=== PATIENT | female | born 1970 | race Caucasian/White ===

== ENCOUNTER 2016-11-04 04:56 | Emergency (ER) | payer OTHER ==
[2006-06-20 18:44] VITALS: BP 116/61
[~2016-11-04] VITALS: Ht 172.7 cm; Wt 82.7 kg
[~2016-11-04 04:56] MED LIST: ATIVAN 0.50.5 MG/TAB PO; CELEXA 20MG20 MG/TAB PO; CEPHALEXIN500 M1 PO; MULTAQ400 MG PO; NO HOME MEDICATIONS; NORCO 325 MG-51 TAB PO; ULTRAM 50MG TAB50 MG PO
[2016-11-04] MEDS ORDERED: TAMBOCOR 1100 MG/TAB PO (05:03)
[2016-11-04] MEDS ORDERED: ATIVAN 0.50.5 MG/TAB PO (05:04)
[2016-11-04 05:55] LABS: BASO # 0.1 (0.0-0.2); EOS # 0.2 (0.0-0.7); EOS % 3.8 % (0-4.0); GRAN # 3.7 (1.4-6.5); GRAN % 63.3 % (42.2-75.2); HEMATOCRIT 41.9 % (37.0-47.0); HEMOGLOBIN 13.2 g/dl (12.5-16.0); LYMPH # 1.5 (1.2-3.4); LYMPH % 25.6 % (20.0-51.0); MEAN CELL VOLUME 84 fl (80.0-100.0); MEAN CORPUSCULAR HEMOGLOBIN 27 pg (27.0-31.0); MEAN CORPUSCULAR HGB CONC 32 g/dl (33.0-37.0); MONO # 0.4 (0.1-0.6); PLATELET COUNT 236 K/mm3 (130-400); RED BLOOD COUNT 4.97 M/mm3 (4.10-5.30); REDCELL DISTRIBUTION WIDTH-CV 13.8 % (11.5-14.5); WHITE BLOOD COUNT 5.8 K/mm3 (4.8-10.8)
[2016-11-04 06:05] LABS: ADJUSTED CALCIUM 10.1 mg/dL (8.4-10.2); ALANINE AMINOTRANSFERASE 31 U/L (9-52); ALBUMIN 4.1 gm/dL (3.5-5.0); ALKALINE PHOSPHATASE 96 U/L (50-136); ANION GAP 10 mmol/L (7-16); BILIRUBIN,TOTAL 0.6 mg/dL (0.0-1.0); BLOOD UREA NITROGEN 12 mg/dL (7-17); CALCIUM 10.2 mg/dL (8.4-10.2); CARBON DIOXIDE 29 mmol/L (22-30); CHLORIDE 101 mmol/L (98-107); CREATININE, serum 0.78 mg/dL (0.52-1.25); GLUCOSE 101 mg/dL (74-106); LIPASE 103 U/L (23-300); POTASSIUM 4.2 mmol/L (3.4-5.0); SODIUM 140 mmol/L (137-145); TOTAL PROTEIN 7.6 gm/dL (6.4-8.2)
[2016-11-04 06:09] LABS: PROTHROMBIN TIME 10.8 SECONDS (9.7-12.8)
[2016-11-04 06:11] LABS: PARTIAL THROMBOPLASTIN TIME 32.2 SECONDS (26.0-37.0)
[2016-11-04 06:21] LABS: TROPONIN-I < 0.012 ng/mL (0.000-0.034)
[2016-11-04 09:07] VITALS: BP 125/77; PULSE 62; TEMP 97.8
== END 2016-11-04 09:07 | disposition home or self-care (01) ==
LOC: COL.ER 04:56
PROVIDERS: Emergency Medicine
DX: R10.13 Epigastric pain (principal); K21.9 Gastro-esophageal reflux disease without esophagitis; Z95.0 Presence of cardiac pacemaker; I49.5 Sick sinus syndrome
CPT/HCPCS: J7040; Q9967

== ENCOUNTER → 2017-04-23 | Outpatient (CLI) | payer OTHER ==
[~2017-04-23] MED LIST changes: +TAMBOCOR 1100 MG/TAB PO
== END ==
LOC: MC.RAD 10:38
DX: Z12.31 Encounter for screening mammogram for malignant neoplasm of breast (principal)

== ENCOUNTER 2018-07-23 23:53 | Emergency (ER) | payer BC ==
[2006-06-20 18:44] VITALS: BP 116/61
[~2018-07-23] VITALS: Ht 172.7 cm; Wt 81.8 kg
[2018-07-23 23:55] VITALS: BP 124/80; TEMP 97.3
[2018-07-24 00:30] LABS: COLLECTION METHOD CLEAN CATCH
[2018-07-24 00:32] LABS: BASO # 0.1 (0.0-0.2); BASO % 0.8 % (0.0-2.0); EOS # 0.2 (0.0-0.7); EOS % 2.8 % (0-4.0); GRAN # 5.2 (1.4-6.5); GRAN % 67.3 % (42.2-75.2); HEMATOCRIT 41.4 % (37.0-47.0); HEMOGLOBIN 13.1 g/dl (12.5-16.0); LYMPH # 1.7 (1.2-3.4); LYMPH % 21.6 % (20.0-51.0); MEAN CELL VOLUME 84 fl (80.0-100.0); MEAN CORPUSCULAR HEMOGLOBIN 27 pg (27.0-31.0); MEAN CORPUSCULAR HGB CONC 32 g/dl (33.0-37.0); MEAN PLATELET VOLUME 9.4 fl (7.4-10.4); MONO # 0.5 (0.1-0.6); PLATELET COUNT 259 K/mm3 (130-400); RED BLOOD COUNT 4.91 M/mm3 (4.10-5.30); REDCELL DISTRIBUTION WIDTH-CV 14.1 % (11.5-14.5)
[2018-07-24 00:37] LABS: MUCOUS Present /lpf; PH 5 (5-8); URINE APPEARANCE Clear; URINE BACTERIA None Seen /hpf; URINE BILIRUBIN Negative (NEGATIVE); URINE BLOOD Negative (NEGATIVE); URINE COLOR Yellow; URINE GLUCOSE Negative (NEGATIVE); URINE KETONE Negative (NEGATIVE); URINE LEUKOCYTE ESTERASE Trace (NEGATIVE); URINE NITRATE Negative (NEGATIVE); URINE PROTEIN(semi-quant) Negative (NEGATIVE); URINE RBC 0-2 /hpf
[2018-07-24 00:39] LABS: BILIRUBIN,TOTAL 0.3 mg/dL (0.0-1.0); CALCIUM 9.6 mg/dL (8.4-10.2); CREATININE, serum 0.81 mg/dL (0.52-1.25); POTASSIUM 3.7 mmol/L (3.4-5.0); TOTAL PROTEIN 7.4 gm/dL (6.4-8.2)
[2018-07-24] MEDS ORDERED: LEXAPRO 10MG10 MG PO (00:52)
[2018-07-24] MEDS ORDERED: ZEGERID 40 MG-11 CAP PO (00:53)
[2018-07-24 01:30] VITALS: PULSE 58
== END 2018-07-24 01:30 | disposition home or self-care (01) ==
LOC: COL.ER 23:53
PROVIDERS: Emergency Medicine
DX: K80.50 Calculus of bile duct without cholangitis or cholecystitis without obstruction (principal)
CPT/HCPCS: J0780; J1170; J1885; J7030

== ENCOUNTER → 2019-10-27 | Outpatient (CLI) | payer BC ==
[~2019-10-27] MED LIST changes: +LEXAPRO 10MG10 MG PO; +ZEGERID 40 MG-11 CAP PO
== END ==
LOC: MC.RAD 07:08
DX: Z12.31 Encounter for screening mammogram for malignant neoplasm of breast (principal); N63.20 Unspecified lump in the left breast, unspecified quadrant

== ENCOUNTER → 2019-10-31 | Outpatient (CLI) | payer BC | LOC: MC.RAD 07:30 | DX: N60.02 Solitary cyst of left breast (principal) ==

== ENCOUNTER 2021-11-30 13:18 | Outpatient (RCR) | payer BC | END 2021-12-15 | disposition home or self-care (01) | LOC: WSST | DX: R13.10 Dysphagia, unspecified (principal) ==

== ENCOUNTER 2021-12-27 16:10 | Outpatient (RCR) | payer BC | END 2022-01-14 | LOC: WSST | DX: R13.10 Dysphagia, unspecified (principal); R11.10 Vomiting, unspecified ==

== ENCOUNTER → 2021-12-27 | Outpatient (CLI) | payer BC | LOC: COL.RAD 12-20 16:15 | DX: R13.10 Dysphagia, unspecified (principal); R11.10 Vomiting, unspecified ==

== ENCOUNTER → 2022-04-17 | Outpatient (CLI) | payer BC | LOC: MC.RAD 06:56 | DX: N60.02 Solitary cyst of left breast (principal); N64.89 Other specified disorders of breast ==

== ENCOUNTER 2022-12-01 06:21 | Day surgery (SDC) | payer BC ==
[2006-06-20 18:44] VITALS: BP 116/61
[~2022-12-01] VITALS: Ht 172.7 cm; Wt 98.4 kg
[2022-12-01] MEDS ORDERED: ESTRACE 1MG1 MG/TAB PO (06:50)
[2022-12-01] MEDS ORDERED: ATIVAN 0.50.5 MG/TAB PO (06:50)
[2022-12-01] MEDS ORDERED: EFFEXOR XR37.5 MG/CA PO (06:51)
[2022-12-01] MEDS ORDERED: EFFEXOR-XR150 MG PO (06:51)
[2022-12-01] MEDS ORDERED: PRIL40 PO (06:51)
[2022-12-01 07:55] VITALS: BP 123/79; PULSE 76; TEMP 97
--- NOTE | 2022-12-01 07:55 | NUR ---
The patient arrived back to [place] [facility] from the endoscopy suite. She appears drowsy but arouses easily and ambulated from the cart to the recliner in her room with the stand by assistance of two nurses and appeared to tolerate the activity well. Post procedure vital signs were started at this time. Call light is within reach. at bedside. Denies any further needs.
[2022-12-01 08:09] VITALS: BP 121/75; PULSE 65
--- NOTE | 2022-12-01 08:10 | NUR ---
The patient appears more alert and oriented and agrees to try a muffin and orange juice. Vital signs appear stable. Call light remains within reach.
[2022-12-01 08:20] VITALS: BP 122/67; PULSE 73
--- NOTE | 2022-12-01 08:20 | NUR ---
Discharge instructions were reviewed with the patient and her at this time. They both verblaized understanding and have no questions for the nurse at this time. The patient's IV to her right anecubital was removed and a pressure dressing was applied to the site. The nurse instructed the patient to get dressed and notify the staff when she is ready to be escorted out.
--- NOTE | 2022-12-01 08:30 | NUR ---
The patient was escorted out to a private vehicle via wheelchair by LESLIE Madera. The patient's belongings and discharge paperwork were sent with her. The patient's is present to drive her home.
[2022-12-01 14:49] VITALS: BP 130/85; PULSE 84; TEMP 97.2
== END 2022-12-01 08:30 | disposition home or self-care (01) ==
LOC: SDCO 06:21
DX: K57.30 Diverticulosis of large intestine without perforation or abscess without bleeding (principal); K21.9 Gastro-esophageal reflux disease without esophagitis
CPT/HCPCS: J2704; J3010